=== PATIENT | male | born 1975 | race Caucasian/White ===

== ENCOUNTER 2016-06-23 11:55 | Emergency (ER) | payer OTHER ==
[2016-06-23] MEDS ORDERED: Ketorolac 30 MG/ML SDV IVPUSH ONE (12:15)
[2016-06-23] MEDS ORDERED: Sodium Chloride 0.9% 2.5 ML Syringe FLUSH PRN (12:15)
[2016-06-23] MEDS ORDERED: Sodium Chloride 0.9% 10 ML Syringe FLUSH PRN (12:15)
[2016-06-23] MEDS ORDERED: Sodium Chloride 0.9% 1,000 ML IV ONE (12:15)
--- NOTE | 2016-06-23 12:18 | EDM.PDOC ---
ED HISTORY OF PRESENT ILLNESS - General Chief Complaint: Respiratory Problem Stated Complaint: COUGH Time Seen by Provider: 06/23/16 12:05 - History of Present Illness INITIAL COMMENTS - FREE TEXT/NARRATIVE: HISTORY AND PHYSICAL: History of present illness: The patient is a 41-year-old male with a history of hypertension who presents with a five-day history of fevers body aches and malaise and temps up to 102. He says that his symptoms all started on Saturday and he had an associated cough and sore throat started after the cough. He had no abdominal complaints such as pain nausea vomiting or diarrhea and has been hydrating. He continued doing his work and today presents because he started having left posterior back pain that radiated around to his left anterior chest. That has only been going on the last few hours. He says is worse when he takes a deep breath or certain movements. He has no cardiac or pulmonary history. Is no leg pain or swelling. The patient denies shortness of breath but says that when he coughs it is uncomfortable and he feels like he cannot take a deep breath. Review of systems: As per history of present illness and below otherwise all systems reviewed and negative. Past medical history: As per history of present illness and as reviewed below otherwise noncontributory. Surgical history: As per history of present illness and as reviewed below otherwise noncontributory. Social history: No reported history of drug or alcohol abuse. Family history: As per history of present illness and as reviewed below otherwise noncontributory. Physical exam: General: Well-developed well-nourished male who is speaking clearly without breathlessness and vital signs have been reviewed by me. HEENT: Atraumatic, normocephalic, pupils reactive, negative for conjunctival pallor or scleral icterus, mucous membranes moist, throat clear, neck supple, nontender, trachea midline. No cervical adenopathy or nuchal rigidity Lungs: Clear to auscultation diminished breath sounds in the bases bilaterally with some coarse breath sounds scattered throughout, no stridor wheezing or sensory muscle use,, breath sounds equal bilaterally, chest nontender. Heart: S1S2, regular, negative for clicks, rubs, or JVD. Abdomen: Soft, nondistended, nontender. Negative for masses or hepatosplenomegaly. Negative for costovertebral tenderness. Pelvis: Stable nontender. Genitourinary: Deferred. Rectal: Deferred. Extremities: Atraumatic, negative for cords or calf pain. Neurovascular unremarkable. No pedal edema or leg asymmetry Neuro: Awake, alert, oriented. Cranial nerves II through XII unremarkable. Cerebellum unremarkable. Motor and sensory unremarkable throughout. Exam nonfocal. Diagnostics: EKG chest x-ray CBC CMP troponin lactic acid blood cultures influenza swab Therapeutics: IV O2 monitor Toradol IV fluids Rocephin Patient is aware of all testing results and care plan for antibiotics here and antibiotics for home. I've advised him on Tylenol Motrin for fevers pushing hydration and need for followup in our clinic. He has been advised of reasons to return to the ER. Impression: Left pneumonia Definitive disposition and diagnosis as appropriate pending reevaluation and review of above. - Related Data Allergies/ADRs: Allergies Allergy/AdvReac Type Severity Reaction Status Date / Time No Known Allergies Allergy Verified 06/23/16 12:07 Home Meds: Home Meds Hydrochlorothiazide 12.5 mg PO DAILY #30 cap 10/01/13 [Rx] Losartan Potassium 25 mg PO DAILY 01/03/15 [History] Metoprolol Succinate [Toprol XL] 06/23/16 [History] Past Medical History HEENT History: Reports: None Cardiovascular History: Reports: Hypertension Respiratory History: Reports: None Gastrointestinal History: Reports: None Genitourinary History: Reports: None Musculoskeletal History: Reports: None Neurological History: Reports: None Psychiatric History: Reports: None Endocrine/Metabolic History: Reports: None Hematologic History: Reports: None Immunologic History: Reports: None Oncologic (Cancer) History: Reports: None Dermatologic History: Reports: None - Past Surgical History Head Surgeries/Procedures: Reports: None Social & Family History - Family History Family Medical History: Noncontributory - Tobacco Use Smoking Status *Q: Current Every Day Smoker Years of Tobacco use: 15 Packs/Tins Daily: 0.5 Used Tobacco, but Quit: No Second Hand Smoke Exposure: No - Caffeine Use Caffeine Use: Reports: Soda - Alcohol Use Days Per Week of Alcohol Use: 7 Number of Drinks Per Day: 7 Total Drinks Per Week: 49 - Recreational Drug Use Recreational Drug Use: No ED ROS GENERAL - Review of Systems Review Of Systems: ROS reveals no pertinent complaints other than HPI. ED EXAM, GENERAL - Physical Exam Exam: See Below (See dictation) Course - Vital Signs Last Recorded V/S: Last Vital Signs Temp 37.8 C 06/23/16 12:09 Pulse 95 06/23/16 12:09 Resp 16 06/23/16 12:09 BP 160/98 H 06/23/16 12:09 Pulse Ox 97 06/23/16 12:09 - Orders/Labs/Meds Orders: Active Orders 24 hr Category Date Time Status Cardiac Monitoring [RC] . DIRECTED Care 06/23/16 12:14 Active EKG Documentation Completion [RC] STAT Care 06/23/16 12:14 Active Oxygen Therapy, ED [RC] ASDIRECTED Care 06/23/16 12:14 Active Pulse Oximetry [RC] ASDIRECTED Care 06/23/16 12:14 Active Chest 2V [CR] Stat Exams 06/23/16 12:15 Taken CULTURE BLOOD [BC] Stat Lab 06/23/16 12:26 Received CULTURE BLOOD [BC] Stat Lab 06/23/16 12:30 Received Sodium Chloride 0.9% [Saline Flush] Med 06/23/16 12:15 Active 10 ml FLUSH ASDIRECTED PRN Sodium Chloride 0.9% [Saline Flush] Med 06/23/16 12:15 Active 2.5 ml FLUSH ASDIRECTED PRN cefTRIAXone [Rocephin in Dextrose,Iso-Osm 1 GM/50 ML] 1 Med 06/23/16 13:47 Active gm Premix Bag 1 bag IV ONETIME Blood Culture x2 Reflex Set [OM.PC] Stat Oth 06/23/16 12:15 Ordered Saline Lock Insert [OM.PC] Stat Oth 06/23/16 12:14 Ordered Medication Orders Ceftriaxone Sodium/Dextrose 1 (gm/ Premix) 50 mls @ 100 mls/hr IV ONETIME ONE Stop: 06/23/16 14:16 Sodium Chloride (Saline Flush) 10 ml FLUSH ASDIRECTED PRN PRN Reason: Keep Vein Open Last Admin: 06/23/16 12:47 Dose: 10 ml Sodium Chloride (Saline Flush) 2.5 ml FLUSH ASDIRECTED PRN PRN Reason: Keep Vein Open Last Admin: 06/23/16 12:47 Dose: 2.5 ml Labs: Laboratory Tests 06/23/16 06/23/16 06/23/16 Range/Units 12:26 12:26 12:26 WBC 10.97 (4.0-11.0) K/uL RBC 4.16 L (4.50-5.90) M/uL Hgb 12.7 L (13.0-17.0) g/dL Hct 37.4 L (38.0-50.0) % MCV 89.9 (80.0-98.0) fL MCH 30.5 (27.0-32.0) pg MCHC 34.0 (31.0-37.0) g/dL RDW Std Deviation 41.2 (28.0-62.0) fl RDW Coeff of Siva 13 (11.0-15.0) % Plt Count 253 (150-400) K/uL MPV 10.60 (7.40-12.00) fL Add Manual Diff YES Neutrophils % (Manual) 71 (48.0-80.0) % Band Neutrophils % 6 % Lymphocytes % (Manual) 12 L (16.0-40.0) % Monocytes % (Manual) 10 (0.0-15.0) % Basophils % (Manual) 1 (0.0-1.5) % Nucleated RBC % 0.0 /100WBC Absolute Seg Neuts 7.8 Band Neutrophils # 0.7 Lymphocytes # (Manual) 1.3 Monocytes # (Manual) 1.1 Basophils # (Manual) 0 Nucleated RBCs # 0 K/uL Lactate 1.8 (0.20-2.00) mmol/L Sodium 133 L (136-146) mmol/L Potassium 4.6 (3.5-5.1) mmol/L Chloride 100 (98-110) mmol/L Carbon Dioxide 21 (21-31) mmol/L BUN 12 (6.0-23.0) mg/dL Creatinine 0.8 (0.6-1.5) mg/dL Est Cr Clr Drug Dosing 109.66 mL/min Estimated GFR (MDRD) > 60.0 ml/min Glucose 110 (60-110) mg/dL Calcium 9.5 (8.8-10.8) mg/dL Total Bilirubin 1.0 (0.1-1.5) mg/dL AST 55 H (5-40) IU/L ALT 48 (8-54) IU/L Alkaline Phosphatase 89 (40-150) Troponin I (0.0-0.29) NG/ML Total Protein 8.6 H (6.0-8.0) g/dL Albumin 4.4 (3.5-5.0) g/dL Globulin 4.2 H (2.0-3.5) g/dL Albumin/Globulin Ratio 1.1 L (1.3-2.8) 06/23/16 Range/Units 12:26 WBC (4.0-11.0) K/uL RBC (4.50-5.90) M/uL Hgb (13.0-17.0) g/dL Hct (38.0-50.0) % MCV (80.0-98.0) fL MCH (27.0-32.0) pg MCHC (31.0-37.0) g/dL RDW Std Deviation (28.0-62.0) fl RDW Coeff of Siva (11.0-15.0) % Plt Count (150-400) K/uL MPV (7.40-12.00) fL Add Manual Diff Neutrophils % (Manual) (48.0-80.0) % Band Neutrophils % % Lymphocytes % (Manual) (16.0-40.0) % Monocytes % (Manual) (0.0-15.0) % Basophils % (Manual) (0.0-1.5) % Nucleated RBC % /100WBC Absolute Seg Neuts Band Neutrophils # Lymphocytes # (Manual) Monocytes # (Manual) Basophils # (Manual) Nucleated RBCs # K/uL Lactate (0.20-2.00) mmol/L Sodium (136-146) mmol/L Potassium (3.5-5.1) mmol/L Chloride (98-110) mmol/L Carbon Dioxide (21-31) mmol/L BUN (6.0-23.0) mg/dL Creatinine (0.6-1.5) mg/dL Est Cr Clr Drug Dosing mL/min Estimated GFR (MDRD) ml/min Glucose (60-110) mg/dL Calcium (8.8-10.8) mg/dL Total Bilirubin (0.1-1.5) mg/dL AST (5-40) IU/L ALT (8-54) IU/L Alkaline Phosphatase (40-150) Troponin I < 0.10 (0.0-0.29) NG/ML Total Protein (6.0-8.0) g/dL Albumin (3.5-5.0) g/dL Globulin (2.0-3.5) g/dL Albumin/Globulin Ratio (1.3-2.8) Meds: Medications Generic Name Dose Route Start Last Admin Trade Name Freq PRN Reason Stop Dose Admin Ceftriaxone Sodium/Dextrose 1 50 mls @ 100 mls/hr 06/23/16 13:47 gm/ Premix IV 06/23/16 14:16 ONETIME ONE Sodium Chloride 10 ml 06/23/16 12:15 06/23/16 12:47 Saline Flush FLUSH 10 ml ASDIRECTED PRN Administration Keep Vein Open Sodium Chloride 2.5 ml 06/23/16 12:15 06/23/16 12:47 Saline Flush FLUSH 2.5 ml ASDIRECTED PRN Administration Keep Vein Open Discontinued Medications Generic Name Dose Route Start Last Admin Trade Name Freq PRN Reason Stop Dose Admin Sodium Chloride 1,000 mls @ 999 mls/hr 06/23/16 12:15 06/23/16 12:40 Normal Saline IV 06/23/16 13:15 999 mls/hr STAT ONE Administration Ketorolac Tromethamine 30 mg 06/23/16 12:15 06/23/16 12:44 Toradol IVPUSH 06/23/16 12:16 30 mg ONETIME ONE Administration Departure - Departure Time of Disposition: 13:59 Disposition: Home, Self-Care 01 Condition: good Clinical Impression: Pneumonia Qualifiers: Pneumonia type: due to unspecified organism Laterality: left Lung location: upper lobe of lung Qualified Code(s): J18.1 - Lobar pneumonia, unspecified organism Forms: ED Department Discharge Additional Instructions: The following information is given to patients seen in the emergency department who are being discharged to home. This information is to outline your options for follow-up care. We provide all patients seen in our emergency department with a follow-up referral. The need for follow-up, as well as the timing and circumstances, are variable depending upon the specifics of your emergency department visit. If you don't have a primary care physician on staff, we will provide you with a referral. We always advise you to contact your personal physician following an emergency department visit to inform them of the circumstance of the visit and for follow-up with them and/or the need for any referrals to a consulting specialist. The emergency department will also refer you to a specialist when appropriate. This referral assures that you have the opportunity for followup care with a specialist. All of these measure are taken in an effort to provide you with optimal care, which includes your followup. Under all circumstances we always encourage you to contact your private physician who remains a resource for coordinating your care. When calling for followup care, please make the office aware that this follow-up is from your recent emergency room visit. If for any reason you are refused follow-up, please contact the [facility] emergency department at and ask to speak to the emergency department charge nurse. [facility] Primary care- Internal Medicine and Family [address] [address] These use [id number] Tylenol or ibuprofen or both for fevers and push hydration. Rest and take antibiotics until they're finished. Please return to ER as needed and as discussed. Please call our clinic for follow up appointment as we discussed. - My Orders Last 24 Hours: My Active Orders 06/23/16 12:14 Cardiac Monitoring [RC] . DIRECTED EKG Documentation Completion [RC] STAT Oxygen Therapy, ED [RC] ASDIRECTED Pulse Oximetry [RC] ASDIRECTED Saline Lock Insert [OM.PC] Stat 06/23/16 12:15 Chest 2V [CR] Stat Sodium Chloride 0.9% [Saline Flush] 10 ml FLUSH ASDIRECTED PRN Sodium Chloride 0.9% [Saline Flush] 2.5 ml FLUSH ASDIRECTED PRN Blood Culture x2 Reflex Set [OM.PC] Stat 06/23/16 12:26 CULTURE BLOOD [BC] Stat 06/23/16 12:30 CULTURE BLOOD [BC] Stat 06/23/16 13:47 cefTRIAXone [Rocephin in Dextrose,Iso-Osm 1 GM/50 ML] 1 gm Premix Bag 1 bag IV ONETIME - Assessment/Plan Last 24 Hours: My Active Orders 06/23/16 12:14 Cardiac Monitoring [RC] . DIRECTED EKG Documentation Completion [RC] STAT Oxygen Therapy, ED [RC] ASDIRECTED Pulse Oximetry [RC] ASDIRECTED Saline Lock Insert [OM.PC] Stat 06/23/16 12:15 Chest 2V [CR] Stat Sodium Chloride 0.9% [Saline Flush] 10 ml FLUSH ASDIRECTED PRN Sodium Chloride 0.9% [Saline Flush] 2.5 ml FLUSH ASDIRECTED PRN Blood Culture x2 Reflex Set [OM.PC] Stat 06/23/16 12:26 CULTURE BLOOD [BC] Stat 06/23/16 12:30 CULTURE BLOOD [BC] Stat 06/23/16 13:47 cefTRIAXone [Rocephin in Dextrose,Iso-Osm 1 GM/50 ML] 1 gm Premix Bag 1 bag IV ONETIME
[2016-06-23 13:02] LABS: CHLORIDE,CL 100 mmol/L (98-110); SODIUM,NA 133 mmol/L (136-146)
[2016-06-23] MEDS ORDERED: cefTRIAXone 1 GM in Premix Bag 1 BAG IV ONE ×2 (13:47→14:05)
[2016-06-23 14:53] VITALS: BP 137/95
--- NOTE | 2016-06-25 17:04 | CR ---
EXAM DATE: 06/23/16 PATIENT'S AGE: 41 Patient: JAYESH COSME Facility: [place], [place] Site . Site : [id number] Study: XRay Chest [id number] 12:57:44 PM Ordering Physician: Porsha Rutherford Final Report: INDICATION: Shortness of breath. TECHNIQUE: PA and lateral chest. FINDINGS: Focal infiltrate left upper lobe posteriorly. This likely reflects pneumonia. Radiographic followup is recommended after appropriate treatment. Calcified granuloma left upper lobe. Normal heart size. The included skeletal thorax is unremarkable. IMPRESSION: Posterior left upper lobe infiltrate compatible with pneumonia. Radiographic follow up is recommended after appropriate treatment. Dictated by Axel Sher MD @ 06/23/2016 1:32:35 PM Dictated by: Axel Sher MD @ 06/23/2016 13:32:41 (Electronic Signature) Report Signed by Proxy and Original Signed Document filed in the Medical Record. MTDD
== END 2016-06-23 14:50 | disposition home or self-care (01) ==
LOC: MW.ED 11:55
DX: J18.1 Lobar pneumonia, unspecified organism (principal); I10 Essential (primary) hypertension; Z79.899 Other long term (current) drug therapy; F17.210 Nicotine dependence, cigarettes, uncomplicated
CPT/HCPCS: 36415; 71020; 80053; 83605; 84484; 85025; 87040; 87804; 93005; 96361; 96365; 99285; J0696; J1885; J7040; 99284

== ENCOUNTER 2022-07-08 10:38 | Emergency (ER) | payer OTHER ==
[2022-07-08] MEDS ORDERED: Cephalexin 500 MG Cap PO ONE (13:07)
[2022-07-08] MEDS ORDERED: Doxycycline 100 MG Cap PO ONE (13:07)
[2022-07-08 15:55] VITALS: BP 175/85; PULSE 87
== END 2022-07-08 15:56 | disposition home or self-care (01) ==
LOC: MW.ED 10:38
DX: M25.562 Pain in left knee (principal); I10 Essential (primary) hypertension; Z79.899 Other long term (current) drug therapy
CPT/HCPCS: 73562; 93971; 99284; A9270; 99283